=== PATIENT | male | born 1990 | race Caucasian/White ===

== ENCOUNTER 2021-10-21 23:15 | Emergency (ER) | payer SELFPAY ==
[~2021-10-21] VITALS: Ht 177.8 cm; Wt 78.0 kg
== END 2021-10-22 04:27 | disposition home or self-care (01) ==
LOC: ER 23:15
DX: R06.02 Shortness of breath (principal); F41.9 Anxiety disorder, unspecified
CPT/HCPCS: 71045; 93005; 99283